=== PATIENT | female | born 1985 | race Caucasian/White ===

== ENCOUNTER 2018-11-10 08:31 | Inpatient (IN) | payer OTHER ==
[2018-11-10] MEDS ORDERED: Penicillin G Potassium IV* 5,000,000 UNITS in NS 0.9% 100 ML* 100 ML IVPB ONE (09:59)
[2018-11-10] MEDS ORDERED: Lactated Ringers 1000 ML Bag* 1,000 ML IV ONE ×2 (09:59→13:15)
[2018-11-10 10:20] LABS: ABS Basophils 0.1 10^3/ul (0-0.2); ABS Eosinophils 0 10^3/ul (0-0.6); ABS Lymphocytes 2.3 10^3/ul (1.0-4.8); ABS Monocytes 0.7 10^3/ul (0-0.8); ABS Neutrophils 10.1 10^3/ul (1.5-7.7); ABS Nucleated RBC 0 10^3/ul; Eosinophil % 0.3 %; Hematocrit 37 % (35-47); Lymphocyte % 17.4 %; Mean Corpuscular HGB Conc 32 g/dl (31-36); Mean Corpuscular Hemoglobin 27 pg (27-31); Mean Corpuscular Volume 85 fL (80-97); Mean Platelet Volume 10.4 fL (7.4-10.4); Nucleated Red Blood Cells % 0; Platelet Count 177 10^3/ul (150-450); Red Blood Count 4.41 10^6/ul (4.00-5.40); Red Cell Distribution Width 13 % (10.5-15); White Blood Count 13.2 10^3/ul (3.5-10.8)
--- NOTE | 2018-11-10 11:03 | HP ---
General Information - Reason for Visit contractions - General Information Maternal Age: 33 Grav: 1 Para: 0 SAB: 0 IEA: 0 Estimated Due Date: 11/06/18 Maternal Blood Type and Rh: O Negative - Results this Serology/RPR Result: Non-Reactive Rubella Result: Immune HBsAg Result: Negative HIV Result: Negative GBS Culture Result: Positive Past Medical History Delivery History: See Records Pertinent Past Medical History: See Records Pertinent Past Surgical History: See Records Pertinent Family History: See Records - Antepartal Records Antepartal Records: Reviewed, Uncomplicated Review of Systems Constitutional: Comfortable CV Complaint: No Respiratory: Shortness of Breath: No Gastrointestinal: No Nausea/Vomiting Genitourinary: No Dysuria, No Leaking Fluid Musculoskeletal: No Complaint Neurological: No Headache Movement: Normal Exam Allergies/Adverse Reactions: Allergies No Known Allergies Allergy (Verified 11/10/18 09:01) T: 98 BP : 119/86 P: 86 R: 20 Lab Values - Entire Visit: Laboratory Tests 11/10/18 11/10/18 09:53 09:53 WBC 13.2 H RBC 4.41 Hgb 12.0 Hct 37 MCV 85 MCH 27 MCHC 32 RDW 13 Plt Count 177 MPV 10.4 Neut % (Auto) 76.3 Lymph % (Auto) 17.4 [place] % (Auto) 5.6 Eos % (Auto) 0.3 Baso % (Auto) 0.4 Absolute Neuts (auto) 10.1 H Absolute Lymphs (auto) 2.3 Absolute Monos (auto) 0.7 Absolute Eos (auto) 0 Absolute Basos (auto) 0.1 Absolute Nucleated RBC 0 Nucleated RBC % 0 Blood Type O Negative Antibody Screen Positive - Measurements Height: 5 ft 3 in Weight: 155 lb Weight in lbs: [id number] Body Mass Index (BMI): 27.4 Pre- Weight: 116 lb Weight Gained This : 39 lbs and 0 ozs - Exam Breast: Breast Exam Deferred CVA: No CVA Tenderness Extremities: No Edema Heart: Normal Rhythm/Heart Sounds HEENT: No Significant Findings Lungs: Clear Bilaterally Rectal: Rectal Exam Deferred Reflexes: DTR 2+ Thyroid: No Thyromegaly - Abdominal Exam Abdomen Exam: Non-Tender - Ultrasound/Biophysical Profile Ultrasound Status: Not Done Targeted Exam Findings Cervical Exam: 1cm Effacement: 80% Station: 0 Presenting Part: Vertex Membrane Status: Intact Bleeding/Discharge: None EFM Findings - External Monitor Findings Baseline Heart Rate: 130 External Monitor Findings: Accelerations Present, No Pattern of Variable or Late Decelerations, Variability Moderate Contractions: Regular - 3-4 ' Assessment/Plan - Obstetrical Risk Factors Obstetrical Risk Factors: GBS Positive - Plan Plan: Antibiotic Prophylaxis, Admit - Anticipate Vaginal Delivery
[2018-11-10] MEDS: Lactated Ringers 1000 ML Bag* 1,000 ML IV SCH ×2 (11:19→13:24)
[2018-11-10] MEDS ORDERED: OBEPIDURAL* 250 ML EPIDURAL ONE (11:27)
[2018-11-10] MEDS ORDERED: fentaNYL* 50 MCG/ML 2 ML VIAL (100 MCG VIAL) ONE (12:22)
[2018-11-10] MEDS ORDERED: Phenylephrine IV* 40 MCG/ML 10 ML SYRINGE IV PUSH PRN ×2 (13:15)
[2018-11-10] MEDS ORDERED: Lactated Ringers 1000 ML Bag* 500 ML IV PRN ×2 (13:15)
[2018-11-10] MEDS ORDERED: Famotidine TAB* 20 MG PO PRN (13:15)
[2018-11-10] MEDS ORDERED: Sodium Citrate/Citric Acid* 15 ML UDC PO PRN (13:15)
[2018-11-10] MEDS ORDERED: OBEPIDURAL* 250 ML EPIDURAL SCH (14:00)
[2018-11-10] MEDS ORDERED: Lactated Ringers 1000 ML Bag* 1,000 ML IV SCH (14:00)
[2018-11-10] MEDS: Penicillin G Potassium IV* 2,500,000 UNITS in NS 0.9% 100 ML* 100 ML IVPB SCH ×3 (14:30→23:06)
[2018-11-10] MEDS ORDERED: Oxytocin in LR* 20 UNITS/1,000 ML BAG IVPB SCH (15:00)
[2018-11-10] MEDS ORDERED: ceFOXitin 2 GM IVPREMIX* 2 GM/50 ML BAG ONE (23:43)
[2018-11-11] MEDS ORDERED: OXYTOCIN* 10 UNITS/ML 1 ML VIAL ONE (00:34)
[2018-11-11] MEDS ORDERED: Ketorolac INJ* 30 MG/ML 1 ML VIAL ONE (00:38)
[2018-11-11] MEDS ORDERED: Ondansetron INJ* 2 MG/ML VIAL ONE (00:38)
[2018-11-11] MEDS ORDERED: Morphine PF AMP (0.5MG/ML)* 5 MG/10 ML AMP ONE (00:40)
[2018-11-11] MEDS ORDERED: Famotidine IV* 10 MG/ML 2 ML (20 mg) ONE (00:41)
[2018-11-11] MEDS ORDERED: Dibucaine 1% 28.35 GM TUBE PR PRN (01:20)
[2018-11-11] MEDS ORDERED: Glycerin ADULT SUPP PR PRN (01:20)
[2018-11-11] MEDS ORDERED: Witch Hazel PAD* JAR TOPICAL PRN (01:20)
[2018-11-11] MEDS ORDERED: RHO D Immune Globulin (HUMAN)* 300 MCG = 1,500 I.U. INJ IM ONE (01:20)
[2018-11-11] MEDS ORDERED: fentaNYL* 50 MCG/ML 2 ML VIAL (100 MCG VIAL) IV PRN (01:26)
[2018-11-11] MEDS ORDERED: Naloxone* 0.4 MG/ML 1 ML VIAL IV PRN ×2 (01:26→01:27)
[2018-11-11] MEDS ORDERED: Scopolamine 1.5 mg* PATCH TRANSDERM PRN (01:27)
[2018-11-11] MEDS ORDERED: DiMENhydriNATE IV* 50 MG/ML VIAL IV PUSH PRN (01:27)
[2018-11-11] MEDS ORDERED: diPHENhydraMINE IV* 50 MG/ML 1 ml VIAL (BENADRYL) IV PRN (01:27)
[2018-11-11] MEDS ORDERED: Ondansetron INJ* 2 MG/ML VIAL IV PRN (01:27)
[2018-11-11] MEDS ORDERED: Nalbuphine* 10 MG/ML 1 ML VIAL IV PRN (01:27)
[2018-11-11] MEDS ORDERED: Acetaminophen TAB* 325 MG PO PRN ×2 (01:27→16:56)
[2018-11-11] MEDS ORDERED: PROCHLORPERAZINE INJ 5 MG/ML 2 ML VIAL IV PRN (01:27)
[2018-11-11] MEDS ORDERED: oxyCODONE/Acetamin 5/325 MG* TAB PO PRN ×3 (01:27→16:55)
[2018-11-11] MEDS ORDERED: Lactated Ringers 1000 ML Bag* 1,000 ML IV SCH (02:00)
[2018-11-11] MEDS ORDERED: Oxytocin in LR* 20 UNITS/1,000 ML BAG IVPB SCH (02:00)
[2018-11-11] MEDS: Ketorolac INJ* 30 MG/ML 1 ML VIAL IV PRN ×3 (03:38→16:31)
[2018-11-11] MEDS: Docusate CAP* 100 MG PO SCH ×3 (09:00→20:27)
[2018-11-11] MEDS: Simethicone TAB* 80 MG TAB.CHEW PO SCH ×4 (09:00→20:27)
[2018-11-11] MEDS: Ibuprofen TAB* 600 MG PO PRN (21:57)
[2018-11-11] MEDS: oxyCODONE/Acetamin 5/325 MG* TAB PO PRN (21:58)
--- NOTE | 2018-11-11 22:30 | OP ---
OPERATIVE REPORT: DATE OF OPERATION: 11/11/18 DATE OF : 89 SURGEON: Dr. Yaquelin Gregory. SHIPWRIGHT SUPERVISOR: Nelda Pereira. ANESTHESIOLOGIST: Dr. Sinha. ANESTHESIA: Epidural. PRE-OP DIAGNOSIS: Intrauterine at 40 and 5/7 weeks, vertex, category 2 heart tracing, remote from delivery. POST-OP DIAGNOSIS: Intrauterine at 40 and 5/7 weeks, vertex, category 2 heart tracing, remote from delivery. OPERATIVE PROCEDURE: Primary low transverse section. ESTIMATED BLOOD LOSS: 500 cc. URINE OUTPUT: 600 cc clear yellow urine. FLUIDS: 1700 cc of crystalloid. FINDINGS: Revealed a vertex male , Apgars 9 at 1 minute and 9 at 5 minutes. No nuchal cord. No meconium. Weight was 8 pounds 3 ounces. Normal- appearing placenta, 3-vessel cord manually extracted intact. Normal uterine cavity without evidence of retained membranes or placental tissue. Normal- appearing tubes and ovaries bilaterally. COMPLICATIONS: None apparent. DISPOSITION: Stable to recovery room. DESCRIPTION OF PROCEDURE: The patient was placed in the dorsal lithotomy position. Abdomen was prepped and draped in the standard sterile fashion. The patient was identified with the universal protocol for procedure, patient, and position. After testing anesthesia to appropriate level, incision was made 2 fingerbreadths from the pubic symphysis. This was carried down through to the fascia. The fascia was scored in the midline with the scalpel, then extended laterally and superiorly using curved [place]as scissors. The fascia was superiorly and inferiorly from the rectus fascia and muscle. The peritoneum was then entered bluntly. Bladder blade was inserted. Lower uterine segment was identified and tented up on an Allis. Incision was made with the scalpel. This was extended laterally and superiorly using bandage scissors. was found to be MALCOLM. Head was delivered, anterior and posterior shoulders delivered. Cord was allowed to pulse for 60 seconds, then clamped and cut, and then the infant was handed off to waiting mastercam programmer. Appropriate cord blood was obtained. Placenta was manually extracted and noted to be intact 3- vessel cord. Uterus was exteriorized. Uterine cavity was wiped clean and noted be free of any membranes or placental tissue. Uterine incision itself was reapproximated using 0 Vicryl x2, first layer running locked, second layer running imbricated. The uterus was returned intraabdominally. Colic gutters were lavaged. Hemostasis was assured at the hysterotomy site. Peritoneum was then reapproximated using 3-0 Vicryl in a running fashion. Subfascial area was visualized, noted to be hemostatic, and the fascia itself was reapproximated using 0 Vicryl x2. Subcu was lavaged. Hemostasis was assured and the skin was reapproximated using 4-0 Monocryl in a subcuticular fashion. All sponges, instrument and blade counts were correct at the case. The patient tolerated the procedure well and went to recovery room in stable condition. [id number]/[facility] #: [id number] MILLICENT
[2018-11-12] MEDS: oxyCODONE/Acetamin 5/325 MG* TAB PO PRN ×5 (01:43→20:24)
[2018-11-12] MEDS: Ibuprofen TAB* 600 MG PO PRN ×3 (03:51→18:05)
[2018-11-12 07:07] LABS: ABS Basophils 0 10^3/ul (0-0.2); ABS Eosinophils 0.1 10^3/ul (0-0.6); ABS Lymphocytes 2.9 10^3/ul (1.0-4.8); ABS Monocytes 0.8 10^3/ul (0-0.8); ABS Neutrophils 11.8 10^3/ul (1.5-7.7); ABS Nucleated RBC 0 10^3/ul; Eosinophil % 0.5 %; Hematocrit 30 % (35-47); Hemoglobin 9.7 g/dl (12.0-16.0); Lymphocyte % 18.7 %; Mean Corpuscular HGB Conc 33 g/dl (31-36); Mean Corpuscular Hemoglobin 28 pg (27-31); Mean Corpuscular Volume 85 fL (80-97); Mean Platelet Volume 9.9 fL (7.4-10.4); Nucleated Red Blood Cells % 0; Platelet Count 175 10^3/ul (150-450); Red Blood Count 3.52 10^6/ul (4.00-5.40); Red Cell Distribution Width 13 % (10.5-15); White Blood Count 15.6 10^3/ul (3.5-10.8)
[2018-11-12] MEDS: Simethicone TAB* 80 MG TAB.CHEW PO SCH ×4 (08:11→20:24)
[2018-11-12] MEDS: Ferrous Gluconate TAB* 324 MG TAB PO SCH ×2 (09:28→20:24)
[2018-11-12] MEDS: Docusate CAP* 100 MG PO SCH ×3 (09:28→20:24)
[2018-11-13] MEDS: oxyCODONE/Acetamin 5/325 MG* TAB PO PRN ×5 (00:13→23:37)
[2018-11-13] MEDS: Ibuprofen TAB* 600 MG PO PRN ×4 (00:13→19:01)
[2018-11-13] MEDS: Simethicone TAB* 80 MG TAB.CHEW PO SCH ×4 (09:15→20:43)
[2018-11-13] MEDS: Ferrous Gluconate TAB* 324 MG TAB PO SCH ×2 (09:15→20:43)
[2018-11-13] MEDS: Docusate CAP* 100 MG PO SCH ×3 (09:15→20:43)
[2018-11-14] MEDS ORDERED: Scopolamine PATCH Remove* 1 NOTE MISC PATCH OFF ONE (01:29)
[2018-11-14] MEDS: Ibuprofen TAB* 600 MG PO PRN ×3 (02:05→14:52)
[2018-11-14] MEDS: oxyCODONE/Acetamin 5/325 MG* TAB PO PRN ×3 (03:47→12:43)
--- NOTE | 2018-11-14 08:28 | PTEDU ---
Patient Name: AGA CHENG AGA CHENG selected video: Never Ever Shake a Baby to view on 11/14/2018 at 8:26:55 AM [id number]
[2018-11-14 08:42] VITALS: BP 115/70
[2018-11-14] MEDS: Ferrous Gluconate TAB* 324 MG TAB PO SCH (08:56)
[2018-11-14] MEDS: Docusate CAP* 100 MG PO SCH ×3 (08:57→14:51)
[2018-11-14] MEDS: Simethicone TAB* 80 MG TAB.CHEW PO SCH ×2 (08:58→12:44)
== END 2018-11-14 15:08 | disposition home or self-care (01) | DRG 540 ==
LOC: MCHOBOUT 08:31 → MCHOB 09:32
PROVIDERS: ADMIT Obstetrics & Gynecology; ATTEND Obstetrics & Gynecology
PROC: 10907ZC Drainage of Amniotic Fluid, Therapeutic from Products of Conception, Via Natural or Artificial Opening (ICD-10-PCS; 2018-11-11)
PROC: 10D00Z1 Extraction of Products of Conception, Low, Open Approach (ICD-10-PCS; principal; 2018-11-11 00:01)
DX: O76 Abnormality in fetal heart rate and rhythm complicating labor and delivery (principal); O48.0 Post-term pregnancy; O99.824 Streptococcus B carrier state complicating childbirth; O90.81 Anemia of the puerperium; D64.9 Anemia, unspecified; Z3A.40 40 weeks gestation of pregnancy; Z37.0 Single live birth
CPT/HCPCS: 36415; 85025; 85461; 86850; 86870; 86880; 86900; 86901; A9270-GY; J0694; J1885; J2405; J2540; J2590; J2790; J3010